=== PATIENT | male | born 1960 | race Two or more races ===

== ENCOUNTER 2020-02-24 20:45 | Observation (INO) | payer MEDICAID ==
[~2020-02-24] VITALS: Ht 180.3 cm; Wt 100.7 kg
[2020-02-24 20:46] VITALS: BP 122/89
--- NOTE | 2020-02-24 21:36 | Emergency Room Report ---
History of Present Illness General Chief Complaint: Generalized Weakness Source: Patient Present Illness HPI 58-year-old male presents to ED for evaluation. Brought in by EMS. States he has been feeling weak x1 day. Br[place] in from convenience store. Patient denies fevers or chills. Denies chest pain. States that it was hot today and he did not drink a lot of water. States he may be dehydrated. No other aggravating relieving factors. Denies any other associated symptoms Allergies: Coded Allergies: PENICILLINS (Verified Allergy, Unknown, 02/24/20) COVID-19 Screening Contact w/high risk pt: No Experienced COVID-19 symptoms?: No COVID-19 Testing performed [employer]: No Patient History Past Medical History: HTN Pertinent Family History: none Social History: Denies: smoking, alcohol use, drug use Immunizations: UTD Reviewed Nursing Documentation: PMH: Agreed; PSxH: Agreed Nursing Documentation-PMH Hx Hypertension: Yes Hx Diabetes: Yes Review of Systems All Other Systems: negative except mentioned in HPI Physical Exam Vital Signs Date Time Temp Pulse Resp B/P (MAP) Pulse Ox O2 Delivery O2 Flow Rate FiO2 02/24/20 20:40 97.5 125 20 119/90 (100) 97 Room Air Sp02 EP Interpretation: reviewed, normal General Appearance: no apparent distress, alert, GCS 15, non-toxic Head: normocephalic, atraumatic Eyes: bilateral eye normal inspection, bilateral eye PERRL ENT: hearing grossly normal, normal pharynx, no angioedema, normal voice Neck: full range of motion, supple/symm/no masses Respiratory: chest non-tender, lungs clear, normal breath sounds, speaking full sentences Cardiovascular #1: regular rate, rhythm, no edema Cardiovascular #2: 2+ carotid (R), 2+ carotid (L), 2+ radial (R), 2+ radial (L) , 2+ dorsalis pedis (R), 2+ dorsalis pedis (L) Gastrointestinal: normal bowel sounds, non tender, soft, non-distended, no guarding, no rebound Rectal: deferred Genitourinary: normal inspection, no CVA tenderness Musculoskeletal: back normal, normal range of motion, gait/station normal, non- tender Neurologic: alert, motor strength/tone normal, oriented x3, sensory intact, responsive, speech normal Psychiatric: judgement/insight normal, memory normal, mood/affect normal, no suicidal/homicidal ideation Reflexes: 3+ bicep (R), 3+ bicep (L), 3+ tricep (R), 3+ tricep (L), 3+ knee (R) , 3+ knee (L) Lymphatic: no adenopathy Medical Decision Making Diagnostic Impression: Primary Impression: Hyponatremia Additional Impressions: Dehydration Episode of generalized weakness ER Course Hospital Course 59-year-old male presenting to ED with generalized weakness Differential diagnoses include: Pneumonia, UTI, sepsis, dehydration, UT/ unstable angina, failure to thrive Clinical course Patient placed on stretcher. stable vitals. After initial history and physical , I ordered labs, IV fluids, CXR Labs - minimal luekocytosis, hb/hct stable, Na 125, K 3.2, BUN/Cr elevated CXR - no acute process Patient appears gravely disabled and not safe for discharge at this time. IV hydration continued. Case discussed with Dr Schneider and they agreed to admit patient to their service for further care and support I feel this is a highly complex case requiring extensive working including EKG/ Rhythm strip, Xray/CT/US, Blood/urine lab work, repeat exams while in ED, and administration of strong opiates/narcotics for pain control, admission to hospital or close patient follow up. Diagnosis -hyponatremia, dehydration, episode of generalized weakness Patient admitted to floor in serious condition Labs Test 02/24/20 21:02 02/24/20 21:18 02/25/20 04:00 02/25/20 04:45 White Blood Count 11.0 K/UL (4.8-10.8) 10.4 K/UL (4.8-10.8) Red Blood Count 5.32 M/UL (4.70-6.10) 4.67 M/UL (4.70-6.10) Hemoglobin 16.4 G/DL (14.2-18.0) 14.3 G/DL (14.2-18.0) Hematocrit 48.1 % (42.0-52.0) 42.4 % (42.0-52.0) Mean Corpuscular Volume 90 FL (80-99) 91 FL (80-99) Mean Corpuscular Hemoglobin 30.8 PG (27.0-31.0) 30.7 PG (27.0-31.0) Mean Corpuscular Hemoglobin Concent 34.1 G/DL (32.0-36.0) 33.8 G/DL (32.0-36.0) Red Cell Distribution Width 12.8 % (11.6-14.8) 12.1 % (11.6-14.8) Platelet Count 317 K/UL (150-450) 267 K/UL (150-450) Mean Platelet Volume 7.3 FL (6.5-10.1) 6.7 FL (6.5-10.1) Neutrophils (%) (Auto) 68.6 % (45.0-75.0) 59.1 % (45.0-75.0) Lymphocytes (%) (Auto) 23.8 % (20.0-45.0) 32.7 % (20.0-45.0) Monocytes (%) (Auto) 5.4 % (1.0-10.0) 6.0 % (1.0-10.0) Eosinophils (%) (Auto) 1.2 % (0.0-3.0) 1.6 % (0.0-3.0) Basophils (%) (Auto) 1.0 % (0.0-2.0) 0.6 % (0.0-2.0) Sodium Level 125 MMOL/L (136-145) 128 MMOL/L (136-145) Potassium Level 3.2 MMOL/L (3.5-5.1) 3.4 MMOL/L (3.5-5.1) Chloride Level 89 MMOL/L (98-107) 92 MMOL/L (98-107) Carbon Dioxide Level 20 MMOL/L (21-32) 25 MMOL/L (21-32) Anion Gap 16 mmol/L (5-15) 11 mmol/L (5-15) Blood Urea Nitrogen 20 mg/dL (7-18) 22 mg/dL (7-18) Creatinine 1.8 MG/DL (0.55-1.30) 1.6 MG/DL (0.55-1.30) Estimat Glomerular Filtration Rate 39.1 mL/min (>60) 44.8 mL/min (>60) Glucose Level 272 MG/DL (74-106) 365 MG/DL (74-106) Calcium Level 9.1 MG/DL (8.5-10.1) 8.2 MG/DL (8.5-10.1) Total Bilirubin 1.5 MG/DL (0.2-1.0) 0.9 MG/DL (0.2-1.0) Direct Bilirubin 0.3 MG/DL (0.0-0.3) Aspartate Amino Transf (AST/SGOT) 25 U/L (15-37) 17 U/L (15-37) Alanine Aminotransferase (ALT/SGPT) 29 U/L (12-78) 26 U/L (12-78) Alkaline Phosphatase 82 U/L (46-116) 67 U/L (46-116) Total Protein 8.3 G/DL (6.4-8.2) 7.0 G/DL (6.4-8.2) Albumin 4.1 G/DL (3.4-5.0) 3.4 G/DL (3.4-5.0) Globulin 4.2 g/dL 3.6 g/dL Albumin/Globulin Ratio 1.0 (1.0-2.7) 0.9 (1.0-2.7) Urine Osmolality 300 mOsm/kg (429-449) Urine Random Sodium < 20 mmol/L (20-110) Urine Opiates Screen Negative (NEGATIVE) Urine Barbiturates Screen Negative (NEGATIVE) Phencyclidine (PCP) Screen Negative (NEGATIVE) Urine Amphetamines Screen Negative (NEGATIVE) Urine Benzodiazepines Screen Negative (NEGATIVE) Urine Cocaine Screen Negative (NEGATIVE) Urine Marijuana (THC) Screen Negative (NEGATIVE) Magnesium Level 1.7 MG/DL (1.8-2.4) Thyroid Stimulating Hormone (TSH) 0.408 uiU/mL (0.358-3.740) Test 02/25/20 16:37 02/25/20 21:06 02/26/20 04:50 02/26/20 06:16 POC Whole Blood Glucose 376 MG/DL (74-106) 207 MG/DL (74-106) White Blood Count 7.5 K/UL (4.8-10.8) Red Blood Count 4.05 M/UL (4.70-6.10) Hemoglobin 12.5 G/DL (14.2-18.0) Hematocrit 37.4 % (42.0-52.0) Mean Corpuscular Volume 92 FL (80-99) Mean Corpuscular Hemoglobin 30.8 PG (27.0-31.0) Mean Corpuscular Hemoglobin Concent 33.3 G/DL (32.0-36.0) Red Cell Distribution Width 12.5 % (11.6-14.8) Platelet Count 209 K/UL (150-450) Mean Platelet Volume 6.8 FL (6.5-10.1) Neutrophils (%) (Auto) 52.9 % (45.0-75.0) Lymphocytes (%) (Auto) 37.9 % (20.0-45.0) Monocytes (%) (Auto) 6.0 % (1.0-10.0) Eosinophils (%) (Auto) 2.5 % (0.0-3.0) Basophils (%) (Auto) 0.8 % (0.0-2.0) Sodium Level 137 MMOL/L (136-145) Potassium Level 4.1 MMOL/L (3.5-5.1) Chloride Level 105 MMOL/L (98-107) Carbon Dioxide Level 25 MMOL/L (21-32) Anion Gap 8 mmol/L (5-15) Blood Urea Nitrogen 17 mg/dL (7-18) Creatinine 1.2 MG/DL (0.55-1.30) Estimat Glomerular Filtration Rate > 60 mL/min (>60) Glucose Level 224 MG/DL (74-106) Calcium Level 8.1 MG/DL (8.5-10.1) Magnesium Level 2.0 MG/DL (1.8-2.4) Total Bilirubin 0.2 MG/DL (0.2-1.0) Aspartate Amino Transf (AST/SGOT) 15 U/L (15-37) Alanine Aminotransferase (ALT/SGPT) 20 U/L (12-78) Alkaline Phosphatase 57 U/L (46-116) Total Protein 6.0 G/DL (6.4-8.2) Albumin 2.9 G/DL (3.4-5.0) Globulin 3.1 g/dL Albumin/Globulin Ratio 0.9 (1.0-2.7) Test 02/26/20 11:56 POC Whole Blood Glucose 214 MG/DL (74-106) Chest X-Ray Diagnostic Results Chest X-Ray Diagnostic Results : Chest X-Ray Ordered: Yes # of Views/Limited/Complete: 1 View Indication: Other EP Interpretation: Yes Interpretation: no consolidation, no effusion, no pneumothorax, no acute cardiopulmonary disease Impression: No acute disease Electronically Signed by: Electronically signed by Troy Min MD Last Vital Signs Date Time Temp Pulse Resp B/P (MAP) Pulse Ox O2 Delivery O2 Flow Rate FiO2 02/24/20 20:46 112 20 Room Air 02/24/20 20:46 97.5 122/89 98 Status: improved Disposition: ADMITTED INPATIENT Condition: Serious Scripts Losartan Potassium (LOSARTAN POTASSIUM) 100 Mg Tablet 100 MG ORAL DAILY for 30 Days, TAB Prov: Jeferson Schneider MD 02/26/20 Troy Min MD Feb 24, 2020 21:36
[2020-02-24 21:45] LABS: ANION GAP 16 mmol/L (5-15); BLOOD UREA NITROGEN 20 mg/dL (7-18); CALCIUM 9.1 MG/DL (8.5-10.1); CARBON DIOXIDE 20 MMOL/L (21-32); CHLORIDE 89 MMOL/L (98-107); CREATININE 1.8 MG/DL (0.55-1.30); POTASSIUM 3.2 MMOL/L (3.5-5.1); SODIUM 125 MMOL/L (136-145)
[2020-02-24 21:51] LABS: EOSINOPHILS % (AUTO) 1.2 % (0.0-3.0); HEMATOCRIT 48.1 % (42.0-52.0); HEMOGLOBIN 16.4 G/DL (14.2-18.0); LYMPHOCYTES % (AUTO) 23.8 % (20.0-45.0); MEAN CORPUSCULAR VOLUME 90 FL (80-99); MONOCYTES % (AUTO) 5.4 % (1.0-10.0); NEUTROPHILS % (AUTO) 68.6 % (45.0-75.0); PLATELET COUNT 317 K/UL (150-450); RED BLOOD COUNT 5.32 M/UL (4.70-6.10); RED CELL DISTRIBUTION WIDTH 12.8 % (11.6-14.8)
[2020-02-24 21:56] LABS: ALANINE AMINOTRANSFERASE 29 U/L (12-78); ALBUMIN 4.1 G/DL (3.4-5.0); ALKALINE PHOSPHATASE 82 U/L (46-116); ASPARTATE AMINO TRANSFERASE 25 U/L (15-37); BILIRUBIN,TOTAL 1.5 MG/DL (0.2-1.0)
[2020-02-24 21:58] LABS: BILIRUBIN,DIRECT 0.3 MG/DL (0.0-0.3)
[2020-02-24 23:05] VITALS: BP 128/75
--- NOTE | 2020-02-24 23:16 | Diagnostic Imaging Report ---
EXAM: XR Chest, 1 View CLINICAL HISTORY: WEAK TECHNIQUE: Frontal view of the chest. COMPARISON: No relevant prior studies available. FINDINGS: Lungs: Unremarkable. No consolidation. Pleural space: Unremarkable. No pneumothorax. Heart: Unremarkable. No cardiomegaly. Mediastinum: Unremarkable. Bones/joints: Degenerative changes of spine. Vasculature: Ectatic thoracic aortic arch. IMPRESSION: No acute disease.
[2020-02-25 00:16] VITALS: BP 134/91
[2020-02-25] MEDS: NS w/KCl 20mEq 1000ml 1,000 ML IV SCH ×4 (00:30→21:03)
[2020-02-25 04:00] VITALS: BP 141/84
[2020-02-25 05:49] LABS: BASOPHILS % (AUTO) 0.6 % (0.0-2.0); EOSINOPHILS % (AUTO) 1.6 % (0.0-3.0); HEMATOCRIT 42.4 % (42.0-52.0); HEMOGLOBIN 14.3 G/DL (14.2-18.0); LYMPHOCYTES % (AUTO) 32.7 % (20.0-45.0); MEAN CORPUSCULAR VOLUME 91 FL (80-99); NEUTROPHILS % (AUTO) 59.1 % (45.0-75.0); PLATELET COUNT 267 K/UL (150-450); RED BLOOD COUNT 4.67 M/UL (4.70-6.10); RED CELL DISTRIBUTION WIDTH 12.1 % (11.6-14.8); WHITE BLOOD COUNT 10.4 K/UL (4.8-10.8)
[2020-02-25 06:21] LABS: ALANINE AMINOTRANSFERASE 26 U/L (12-78); ALBUMIN 3.4 G/DL (3.4-5.0); ALBUMIN/GLOBULIN RATIO 0.9 (1.0-2.7); ALKALINE PHOSPHATASE 67 U/L (46-116); ANION GAP 11 mmol/L (5-15); ASPARTATE AMINO TRANSFERASE 17 U/L (15-37); BILIRUBIN,TOTAL 0.9 MG/DL (0.2-1.0); BLOOD UREA NITROGEN 22 mg/dL (7-18); CALCIUM 8.2 MG/DL (8.5-10.1); CARBON DIOXIDE 25 MMOL/L (21-32); CHLORIDE 92 MMOL/L (98-107); CREATININE 1.6 MG/DL (0.55-1.30); POTASSIUM 3.4 MMOL/L (3.5-5.1); SODIUM 128 MMOL/L (136-145)
[2020-02-25 08:00] VITALS: BP 132/77
[2020-02-25 12:00] VITALS: BP 164/100
[2020-02-25] MEDS ORDERED: ABILIFY15 MG ORAL (14:28)
[2020-02-25] MEDS ORDERED: MIRTAZAPINE15 M3 ORAL (14:28)
[2020-02-25] MEDS ORDERED: METFORMIN HCL500 M1 ORAL (14:33)
[2020-02-25] MEDS ORDERED: CARVEDILOL12.5 MG ORAL (14:33)
[2020-02-25] MEDS ORDERED: LOSARTAN-HCTZ1 EAC1 ORAL (14:33)
[2020-02-25] MEDS ORDERED: AMLODIPINE BESYL5 MG ORAL (14:33)
[2020-02-25 16:00] VITALS: BP 139/83
[2020-02-25] MEDS ORDERED: NovoLOG Insulin Flexpen SUBQ SCH (16:50)
[2020-02-25] MEDS: NovoLOG Insulin Flexpen SUBQ SCH ×2 (17:07→21:10)
[2020-02-25 20:00] VITALS: BP 146/90
[2020-02-25] MEDS: Carvedilol 12.5mg tab ORAL SCH (21:02)
[2020-02-26] VITALS: BP 135/91
--- NOTE | 2020-02-26 02:14 | History and Physical Report ---
DATE OF ADMISSION: 02/24/2020 REASON FOR REQUEST: Hypovolemia, dehydration, and acute renal failure. HISTORY: This is a 59-year-old male. He has a psychiatric history. He apparently lives in an assisted living facility, although that data is not clear. He was found by paramedics, weak and dizzy and unable to mobilize himself out of a convenience store. He stated that it was hot weather today and he has not drank enough fluids. He denies nausea, vomiting, abdominal pain, or diarrhea. He was seen in the emergency room and abnormal laboratory studies prompted hospitalization. PAST MEDICAL HISTORY: Schizoaffective disorder, hypertension, type 2 diabetes mellitus. ALLERGIES: Penicillin. MEDICATIONS: Reviewed and reconciled. SOCIAL HISTORY: Denies smoking, alcohol, or substance abuse. REVIEW OF SYSTEMS: A 10-point review of systems was performed. All systems negative other than noted above. PHYSICAL EXAMINATION: GENERAL: Blood pressure 119/90, heart rate 125, respiratory rate 20, afebrile in the emergency room. This morning, blood pressure 164/100, heart rate 89, respiratory rate 16, afebrile. HEENT: Normocephalic atraumatic. Conjunctivae pink. Oropharynx clear. Mucous membranes dry. NECK: Supple. Jugular venous pressure normal. LUNGS: Clear. CARDIAC: Regular rhythm. Normal S1, S2 with a fourth heart sound. ABDOMEN: Soft, nontender. EXTREMITIES: No edema. LABORATORY DATA: White count 11, hemoglobin 16.4. Sodium 125, potassium 3.2, chloride 89, bicarb 20. BUN 20, creatinine 1.8. Glucose 272. Albumin 4.1. IMPRESSION: 1. Dehydration. 2. Hypovolemia. 3. Acute renal failure. 4. Hyponatremia. 5. Hypokalemia. 6. Hypochloremia. 7. Metabolic acidosis. 8. Type 2 diabetes, uncontrolled. 9. Hypertensive heart disease with labile blood pressure. PLAN: 1. IV fluid hydration with saline. 2. Replace potassium. 3. Check magnesium. 4. Check thyroid function. 5. Discontinue metformin for now. 6. Insulin coverage by sliding scale. 7. Stepwise titration of antihypertensive regimen. 8. Avoid diuretics. Jeferson Wyatt, M.D. DR: CARMEN JOB#: [id number] CC:
[2020-02-26] MEDS: NS w/KCl 20mEq 1000ml 1,000 ML IV SCH ×2 (03:57→09:50)
[2020-02-26 04:00] VITALS: BP 132/80
[2020-02-26 05:24] LABS: BASOPHILS % (AUTO) 0.8 % (0.0-2.0); EOSINOPHILS % (AUTO) 2.5 % (0.0-3.0); HEMATOCRIT 37.4 % (42.0-52.0); HEMOGLOBIN 12.5 G/DL (14.2-18.0); LYMPHOCYTES % (AUTO) 37.9 % (20.0-45.0); MEAN CORPUSCULAR VOLUME 92 FL (80-99); NEUTROPHILS % (AUTO) 52.9 % (45.0-75.0); PLATELET COUNT 209 K/UL (150-450); RED BLOOD COUNT 4.05 M/UL (4.70-6.10); RED CELL DISTRIBUTION WIDTH 12.5 % (11.6-14.8); WHITE BLOOD COUNT 7.5 K/UL (4.8-10.8)
[2020-02-26 05:37] LABS: ALANINE AMINOTRANSFERASE 20 U/L (12-78); ALBUMIN 2.9 G/DL (3.4-5.0); ALBUMIN/GLOBULIN RATIO 0.9 (1.0-2.7); ALKALINE PHOSPHATASE 57 U/L (46-116); ANION GAP 8 mmol/L (5-15); ASPARTATE AMINO TRANSFERASE 15 U/L (15-37); BILIRUBIN,TOTAL 0.2 MG/DL (0.2-1.0); BLOOD UREA NITROGEN 17 mg/dL (7-18); CALCIUM 8.1 MG/DL (8.5-10.1); CARBON DIOXIDE 25 MMOL/L (21-32); CHLORIDE 105 MMOL/L (98-107); CREATININE 1.2 MG/DL (0.55-1.30); POTASSIUM 4.1 MMOL/L (3.5-5.1); SODIUM 137 MMOL/L (136-145)
[2020-02-26] MEDS: NovoLOG Insulin Flexpen SUBQ SCH ×2 (06:22→12:00)
[2020-02-26 08:00] VITALS: BP 121/72
[2020-02-26] MEDS ORDERED: LOSARTAN POTAS100 MG ORAL (08:08)
[2020-02-26] MEDS: Carvedilol 12.5mg tab ORAL SCH (08:52)
[2020-02-26] MEDS ORDERED: metFORMIN 500mg tab ORAL SCH (09:00)
[2020-02-26 12:00] VITALS: BP 130/81
--- NOTE | 2020-02-27 15:47 | Discharge Summary ---
Discharge Summary Discharge Summary _ DATE OF ADMISSION: 02/24/2020 DATE OF DISCHARGE: 02/26/2020 DISCHARGED BY: Dr Schneider REASON FOR ADMISSION: 59 years old male with past medical history of hypertension, diabetes mellitus, was brought by paramedics for evaluation from the convenience store. Patient reported feeling weak for 1 day. Patient denied fever and chills. No chest pain. Patient reported that it was hot today , and he did not drink a lot of water. Patient stated that he may be dehydrated. Upon evaluation patient was tachycardic with heart rate 125. No fevers . Pulse oximetry r was stable on room air, and blood pressure was stable. Laboratory work-up revealed mild leukocytosis WBC 11, hemoglobin 16.4 , hematocrit 48.1 ,platelet count 317. Sodium 125 ,potassium 3.2 . BUN 20, creatinine 1.8. Glucose 272. Stable LFT. Urine toxicology screen was negative. Chest x-ray revealed no acute cardiopulmonary pathology. Patient started on IV hydration and admitted for further management HOSPITAL COURSE: Patient admitted . Volume support with saline solution provided. Potassium was replaced. Renal parameters and electrolytes were closely monitored, electrolytes further corrected as needed, and nephrotoxic's were avoided. Magnesium stable. TSH within normal limits. With IV hydration sodium 137, potassium 4.1. Creatinine down to normal. Blood sugar was managed with sliding scale of insulin. Diabetic diet and diabetic teaching provided. Antihypertensive regimen was up-titrated . Diuretics were avoided. Blood pressure stabilized and prior to discharge 130/ 81. Patient clinically stabilized and was ready for discharge home. FINAL DIAGNOSES: Dehydration Acute renal failure ( due to dehydration )-resolved Hyponatremia-resolved Hypokalemia-resolved Metabolic acidosis Diabetes mellitus type 2 - [id number] Hypertensive heart disease with labile blood pressure DISCHARGE MEDICATIONS: See Medication Reconciliation list. DISCHARGE INSTRUCTIONS: Patient was discharged home . Follow-up with a primary care provider in 1 week. I have been assigned to dictate discharge summary for this account. I was not involved in the patient's management. Mei Fontenot NP Feb 27, 2020 15:47
== END 2020-02-26 14:25 | disposition home or self-care (01) ==
LOC: EDBD 20:45 → EMR 21:10 → INTOOBSV 23:07 → EDBD 23:07 → 3E 23:07 → EDBEDREQ 23:23
DX: E86.0 Dehydration (principal); N17.9 Acute kidney failure, unspecified; E87.1 Hypo-osmolality and hyponatremia; E87.2 Acidosis; E11.65 Type 2 diabetes mellitus with hyperglycemia; Z88.0 Allergy status to penicillin; E87.6 Hypokalemia; I11.9 Hypertensive heart disease without heart failure
CPT/HCPCS: 36415; 71045; 80053; 80307; 82248; 82962; 83735; 83935; 84300; 84443; 85025; 87081; 96360; J1815; Z7502; Z7514; 99285; G0378; J8499